=== PATIENT | female | born 1985 | race Caucasian/White ===

== ENCOUNTER 2019-08-17 16:16 | Emergency (ER) | payer SELFPAY ==
[2019-08-17 16:20] VITALS: BP 146/95; PULSE 136; RESP 20; TEMP 38.2; O2SAT 99
--- NOTE | 2019-08-17 16:45 | PC.NURSE ---
Made aware of positive flu result and told to continue to wear mask
--- NOTE | 2019-08-17 17:30 | ED.GENADULT ---
HPI - General Adult General Chief complaint: Upper Respiratory Infection Stated complaint: diff breathing/fever Time Seen by Provider: 08/17/19 16:28 Source: patient Mode of arrival: ambulatory Limitations: no limitations History of Present Illness HPI narrative: Patient is a 33-year-old female who presents to emergency department for evaluation of fever chills body aches fatigue cough congestion sore throat rhinorrhea began acutely yesterday has not taken anything for her symptoms denies vomiting or diarrhea. Patient has moderate aching pain of the chest with coughing Related Data Home Medications Medication Instructions Recorded Confirmed sertraline 50 mg tablet 50 mg PO DAILY 05/28/19 Allergies Allergy/AdvReac Type Severity Reaction Status Date / Time diazepam Allergy Unknown Hives and Verified 08/17/19 16:37 Shortness of breath Review of Systems Review of Systems: All systems reviewed & are unremarkable except as noted in HPI and below PMFSH Past Medical History Medical History Abnormal Pap smear of cervix Major depressive disorder, recurrent, moderate Mild intermittent asthma Family History Family History (Updated 06/26/17 @ 21:18 by DOCTOR UNKNOWN) Mother Patient's mother is in good health Father Family history of cardiovascular disease, Onset Age: 63 Family history of schizophrenia Social History Social History Smoking status: Never smoker Alcohol intake: never Substance use: never Substance use type: does not use Gender identity (if verbalized by the patient): Female Exam Narrative: Exam Narrative: GENERAL: Ill-appearing, well-nourished, and in no acute distress. HEAD: Normocephalic, atraumatic. EYES: PERRLA and EOMI. ENT: Nares clear, no rhinorrhea or epistaxis. Mucous membranes moist. Oropharynx without tonsillar hypertrophy exudate or other lesions. NECK: Supple. No adenopathy or masses. No carotid bruits or JVD CHEST: Clear to auscultation. No respiratory distress. No wheezes rales or rhonchi HEART: Regular rate and rhythm. No murmur heard. Normal peripheral pulses. ABDOMEN: Soft, nontender, nondistended, normal active bowel sounds. EXTREMITIES: Normal range of motion. No edema. SKIN: Warm, dry, no rash. NEURO: No focal deficits. Alert and oriented x3. Cranial nerves II through XII grossly intact. Normal speech and gait PSYCH: Normal mood and affect. Course Course Emergency Course: Patient in the room in no distress aware of case findings treatment plan and diagnosis agreeing to follow-up as directed or to return if symptoms worsen or concerns Vital Signs Vital signs: Vital Signs Temperature 100.7 F H 08/17/19 16:20 Pulse Rate 136 H 08/17/19 16:20 Respiratory Rate 20 08/17/19 16:20 Blood Pressure 146/95 H 08/17/19 16:20 Pulse Oximetry 99 08/17/19 16:20 Temperature 100.7 F H 08/17/19 16:20 Pulse Rate 136 H 08/17/19 16:20 Respiratory Rate 20 08/17/19 16:20 Blood Pressure 146/95 H 08/17/19 16:20 Pulse Oximetry 99 08/17/19 16:20 Medical Decision Making MDM Narrative Medical decision making narrative: Patient in the room with influenza given updraft treatment nontoxic-appearing no distress felt appropriate for outpatient reevaluation Vital Signs Vital Signs: Vital Signs Temperature 100.7 F H 08/17/19 16:20 Pulse Rate 136 H 08/17/19 16:20 Respiratory Rate 20 08/17/19 16:20 Blood Pressure 146/95 H 08/17/19 16:20 Pulse Oximetry 99 08/17/19 16:20 Temperature 100.7 F H 08/17/19 16:20 Pulse Rate 136 H 08/17/19 16:20 Respiratory Rate 20 08/17/19 16:20 Blood Pressure 146/95 H 08/17/19 16:20 Pulse Oximetry 99 08/17/19 16:20 Lab Data Labs: Influenza A Screen Positive Reference Range: Negative Influenza B Screen Negative Reference Range:
[2019-08-17] MEDS: ACETAMINOPHEN 500 MG TABLET 1000 MG PO (17:47)
[2019-08-17] MEDS: IBUPROFEN 600 MG TABLET PO (17:48)
[2019-08-17] MEDS: IPRATROPIUM BR 0.02% INH SOLN 0.5 MG/2.5 ML VIAL INHALATION (17:56)
[2019-08-17] MEDS: ALBUTEROL SULFATE NEB 2.5 MG/0.5 ML INH 5 MG INHALATION (17:56)
[2019-08-17 17:58] VITALS: PULSE 128; RESP 18
--- NOTE | 2019-08-17 18:02 | PC.NURSE ---
UDT in progress.
[2019-08-17 18:04] VITALS: PULSE 126; RESP 22
[2019-08-17 18:35] VITALS: TEMP 37.4
== END 2019-08-17 18:35 | disposition home or self-care (01) ==
PROVIDERS: Emergency Provider Emergency Medicine; PCP Family Medicine
DX: J11.1 Influenza due to unidentified influenza virus with other respiratory manifestations (principal)
CPT/HCPCS: 87804; 94640; 99283; A9270

== ENCOUNTER 2019-08-19 18:22 | Emergency (ER) | payer SELFPAY | END 2019-08-19 18:23 | disposition left against medical advice (07) | LOC: ANHED 19:52 | PROVIDERS: PCP Family Medicine | DX: Z53.21 Procedure and treatment not carried out due to patient leaving prior to being seen by health care provider (principal) | CPT/HCPCS: 99199 ==

== ENCOUNTER 2020-06-17 10:27 | Emergency (ER) | payer SELFPAY ==
--- NOTE | ~2020-06-17 | XR_ITS ---
EXAMINATION: XR chest 2V EXAM DATE: 06/17/2020 10:51 INDICATION: Shortness of breath, sore throat. TECHNIQUE: Frontal and lateral projections of the chest obtained and reviewed. Comparison is made to prior examination from 05/14/2017. FINDINGS: The lungs are clear. There are no pleural effusions. The cardiomediastinal silhouette is within normal limits. There is no pneumothorax suspected. The bones and soft tissues are unremarkab le. IMPRESSION: No acute cardiopulmonary findings. Reviewed, dictated and finalized at location [facility]. MEASURING MACHINE OPERATOR
[2020-06-17 10:36] VITALS: BP 138/84; PULSE 94; RESP 16; TEMP 36.4; O2SAT 100
--- NOTE | 2020-06-17 11:08 | ED.URI ---
HPI - URI/Sore Throat General Chief Complaint: Upper Respiratory Infection Stated Complaint: sore throat Time Seen by Provider: 06/17/20 11:00 Source: patient and RN notes reviewed Mode of arrival: ambulatory Limitations: no limitations History of Present Illness HPI Narrative: Patient presents today complaining of a 2-day history of productive cough, wheezing, shortness of breath, fatigue, sore throat. She has been taking Robitussin and cough drops without relief. Currently rates her sore throat 03/02. History of bronchitis that she gets once a year. Patient had a Covid swab done this morning at [facility], but does not yet have the results. Patient is also requesting a refill of her albuterol inhaler. MD elicited complaint: cough and sore throat Related Data Home Medications Medication Instructions Recorded Confirmed sertraline 50 mg tablet 50 mg PO DAILY 05/28/19 Allergies Allergy/AdvReac Type Severity Reaction Status Date / Time diazepam Allergy Unknown Hives and Verified 06/17/20 10:31 Shortness of breath Review of Systems Review of Systems: Narrative: CONSTITUTIONAL: Denies body aches, fever, chills, or sweats.+ Fatigue EYES: Denies visual changes, redness, or discharge. ENT: Denies rhinorrhea, or otalgia.+ Congestion, sore throat CARDIOVASCULAR: Denies chest pain, palpitations, or edema. RESPIRATORY: + Cough, wheezing, shortness of breath GASTROINTESTINAL: Denies abdominal pain, nausea, vomiting, or diarrhea. GENITOURINARY: Denies dysuria or hematuria. SKIN: Denies rash, itching, or wounds. MUSCULOSKELETAL: Denies back pain, joint pain, or myalgia. NEUROLOGIC: Denies headache, numbness, tingling, or weakness. PSYCH: Denies depression or anxiety. [facility] Past Medical History Medical History (Updated 06/17/20 @ 11:13 by Rosita Miller, JENNIFER, BC) Abnormal Pap smear of cervix Major depressive disorder, recurrent, moderate Mild intermittent asthma Family History Family History Mother Patient's mother is in good health Father Family history of cardiovascular disease, Onset Age: 63 Family history of schizophrenia Social History Social History Smoking status: Never smoker Alcohol intake: never Substance use: never Substance use type: does not use Gender identity (if verbalized by the patient): Female Comments At time of signature, I have reviewed and agree with nursing past medical, surgical, social and family history unless otherwise noted. Please see nursing chart for further information. There is no relevant family history pertinent to the presenting complaint Exam Narrative: Exam Narrative: GENERAL: Mildly ill-appearing, well-nourished, and in no acute distress. HEAD: Normocephalic, atraumatic. EYES: EOMI. No redness or drainage. Conjunctivae normal. ENT: Mucous membranes pink and moist. Nares congested. No rhinorrhea. TMs normal bilaterally. Throat normal. Uvula midline. NECK: Normal AROM. Supple. No lymphadenopathy. CHEST: No respiratory distress. Clear to auscultation. HEART: Regular rate and rhythm. No murmur appreciated. Normal peripheral pulses. EXTREMITIES: Normal range of motion. No edema. SKIN: Warm, dry, no rash. Capillary refill normal. Normal skin turgor. NEURO: No focal deficits. Alert and oriented x3. Gait steady. PSYCH: Normal affect. No signs of depression or anxiety. Course Course Emergency Course: Due to recent exposure and symptoms, patient may have a possible COVID-19 infection. Signs and symptoms discussed with patient. Patient educated to self-isolate in a room in his/her home away from others they live with. Use mask if available. Patient was advised not to leave house for any reason ? Self-treatment discussed including Tylenol for fever, pain, or myalgia, and cough cold medications for symptoms. Patient to check [place]
== END 2020-06-17 11:16 | disposition home or self-care (01) ==
PROVIDERS: Emergency Provider Nurse Practitioner
DX: J40 Bronchitis, not specified as acute or chronic (principal); F33.9 Major depressive disorder, recurrent, unspecified
CPT/HCPCS: 71046; 87081; 87880; 99213; G0463

== ENCOUNTER 2020-10-07 09:22 | Emergency (ER) | payer SELFPAY ==
[2020-10-07 09:26] VITALS: BP 137/95; PULSE 104; RESP 20; TEMP 36.5; O2SAT 97
[2020-10-07 10:10] LABS: Basophils Percent Auto 0.2 % (0.2-1.2); Eosinophils Absolute Auto 0.1 K/mm3 (0-0.3); Eosinophils Percent Auto 0.6 % (0-4.4); Hematocrit 48.2 % (37.0-47.0); Hemoglobin 15.5 g/dL (12.0-15.0); Immature Granulocyte Absolute 0.07 K/mm3 (0.00-0.031); Immature Granulocyte Percent A 0.4 % (0-0.5); Lymphocytes Absolute Auto 0.68 K/mm3 (0.9-3.2); Lymphocytes Percent Auto 4.3 % (18.3-44.2); Mean Corpuscular HGB Conc 32.2 g/dl (32-36); Mean Corpuscular Hemoglobin 27.9 pg (26-34); Mean Corpuscular Volume 86.8 fl (80-100); Mean Platelet Volume 9.5 fl (7.4-10.4); Monocytes Absolute Auto 0.6 K/mm3 (0.1-0.6); Monocytes Percent Auto 3.8 % (2.6-8.5); Neutrophils Absolute Auto 14.2 K/mm3 (1.3-6.7); Neutrophils Percent Auto 90.7 % (45.5-73.1); Platelet Count Result 409 k/mm3 (150-375); Red Blood Count 5.55 M/mm3 (4.2-5.4); Red Cell Distribution Width 13.5 % (11.5-14.5); White Blood Count 15.7 K/mm3 (4.5-10.0)
[2020-10-07 10:16] LABS: Add Urine Microscopic? YES; Appearance Urine Cloudy (Clear); Bacteria Urine Trace /hpf; Bilirubin Urine Negative (Negative); Blood Urine Negative (Negative); Color Urine Yellow (Yellow); Glucose Urine UA Negative (Negative); Ketones Urine Negative (Negative); Leukocyte Esterase Ur 3+ LEU/UL (Negative); Mucus Urine Few /lpf; Nitrate Urine Negative (Negative); Protein Urine 1+ mg/dL (Negative); Specific Grav Ur 1.029 (1.001-1.035); Squamous Epithelial Cell Urine Many /hpf (Few); Urobilinogen Urine Negative mg/dL (<2.0)
[2020-10-07 10:23] LABS: Alanine Aminotransferase 12 U/L (4-35); Albumin Level 5.1 g/dL (3.5-5.1); Alkaline Phosphatase 85 U/L (38-126); Anion Gap 12 mmol/L (8-16); Aspartate Amino Transferase 22 U/L (14-36); Bilirubin,Total 0.5 mg/dL (0.2-1.3); Blood Urea Nitrogen 14 mg/dL (7-17); Calcium 9.5 mg/dL (8.4-10.2); Carbon Dioxide 23 mmol/L (22-30); Chloride 105 mmol/L (98-107); Estimated CRCL calculation 93 ml/min; Estimated Glomerular Filt Rate > 60; Glucose 146 mg/dL (65-105); Lipase 102 U/L (23-300); Potassium 4.2 mmol/L (3.4-5.0); Sodium 140 mmol/L (137-145)
[2020-10-07] MEDS: ONDANSETRON INJ 4 MG/2 ML VIAL IV PUSH (10:44)
[2020-10-07] MEDS: FAMOTIDINE 20 MG/2 ML VIAL IV PUSH (10:44)
[2020-10-07] MEDS: SODIUM CHLORIDE 0.9% IV 1,000 ML 999 ML IV CONT (10:45)
[2020-10-07] MEDS: HYOSCYAMINE SULFATE 0.125 MG TABLET PO (10:48)
--- NOTE | 2020-10-07 12:16 | ED.GENADULT ---
HPI - General Adult General Chief complaint: Nausea/Vomiting/Diarrhea Stated complaint: n/v/d since 0300 with fever Time Seen by Provider: 10/07/20 10:29 Source: patient and family Mode of arrival: ambulatory Limitations: no limitations History of Present Illness HPI narrative: Patient is a 34-year-old female who presented to emergency department for evaluation of vomiting and diarrhea that began yesterday and persisted throughout the night patient noted multiple episodes of both with retching notes some discomfort in the upper abdomen with the vomiting denies any rectal bleeding melena or hematemesis. Patient has not taken anything for her symptoms. Patient notes sick contacts at work with similar symptoms. Related Data Allergies Allergy/AdvReac Type Severity Reaction Status Date / Time diazepam Allergy Unknown Hives and Verified 10/07/20 09:27 Shortness of breath Review of Systems Review of Systems: All systems reviewed & are unremarkable except as noted in HPI and below PMFSH Past Medical History Medical History (Updated 10/07/20 @ 12:19 by Ildefonso Soliz PA-C) Abnormal Pap smear of cervix Major depressive disorder, recurrent, moderate Mild intermittent asthma Family History Family History Mother Patient's mother is in good health Father Family history of cardiovascular disease, Onset Age: 63 Family history of schizophrenia Social History Social History Smoking status: Never smoker Alcohol intake: never Substance use: never Substance use type: does not use Gender identity (if verbalized by the patient): Female Exam Narrative: Exam Narrative: GENERAL: Well-appearing, well-nourished, and in no acute distress. HEAD: Normocephalic, atraumatic. EYES: PERRLA and EOMI. ENT: Nares clear, no rhinorrhea or epistaxis. Mucous membranes moist. Oropharynx without tonsillar hypertrophy exudate or other lesions. NECK: Supple. No adenopathy or masses. CHEST: Clear to auscultation. No respiratory distress. No wheezes rales or rhonchi HEART: Regular rate and rhythm. No murmur heard. Normal peripheral pulses. ABDOMEN: Soft, mild tenderness of the upper abdomen no rebound or guarding, nondistended EXTREMITIES: Normal range of motion. No edema. SKIN: Warm, dry, no rash. NEURO: No focal deficits. Alert and oriented x3. Cranial nerves II through XII grossly intact PSYCH: Normal mood and affect. Course Course Emergency Course: Patient in the room in no distress aware of case findings treatment plan and diagnosis agreeing to follow-up as instructed Vital Signs Vital signs: Vital Signs Temperature 97.7 F 10/07/20 09:26 Pulse Rate 104 H 10/07/20 09:26 Respiratory Rate 20 10/07/20 09:26 Blood Pressure 137/95 H 10/07/20 09:26 Pulse Oximetry 97 10/07/20 09:26 Temperature 97.7 F 10/07/20 09:26 Pulse Rate 104 H 10/07/20 09:26 Respiratory Rate 20 10/07/20 09:26 Blood Pressure 137/95 H 10/07/20 09:26 Pulse Oximetry 97 10/07/20 09:26 Medical Decision Making MDM Narrative Medical decision making narrative: Patient was evaluated for vomiting and diarrhea likely enteritis patient was hydrated given medications feels much better tolerating p.o. intake nontender abdominal exam will be discharged home with medications and provided with reasons to return vital signs and ABCs intact and stable patient's leukocytosis likely related to the stress reaction and infection Vital Signs Vital Signs: Vital Signs Temperature 97.7 F 10/07/20 09:26 Pulse Rate 104 H 10/07/20 09:26 Respiratory Rate 20 10/07/20 09:26 Blood Pressure 137/95 H 10/07/20 09:26 Pulse Oximetry 97 10/07/20 09:26 Temperature 97.7 F 10/07/20 09:26 Pulse Rate 104 H 10/07/20 09:26 Respiratory Rate 20 10/07/20 09:26 Blood Pressure 137/95 H 10/07/20 09:26 Pulse Oximetry 97
[2020-10-07] MEDS: PROCHLORPERAZINE EDISYLATE 10 MG/2 ML VIAL IV PUSH (12:47)
[2020-10-07 12:54] VITALS: BP 130/84; PULSE 84; RESP 18; O2SAT 100
== END 2020-10-07 12:58 | disposition home or self-care (01) ==
PROVIDERS: Emergency Provider Emergency Medicine; PCP Family Medicine
DX: R10.10 Upper abdominal pain, unspecified (principal); J45.20 Mild intermittent asthma, uncomplicated
CPT/HCPCS: 36415; 80053; 81001; 81025; 83690; 85025; 96361; 96365; 96375; 99284; A9270; J0131; J0780; J2405; J7030

== ENCOUNTER 2021-08-05 11:36 | Emergency (ER) | payer SELFPAY ==
--- NOTE | 2021-08-05 11:38 | ED.URI ---
HPI - URI/Sore Throat General Chief Complaint: Upper Respiratory Infection Stated Complaint: currie/sore throat/sob Time Seen by Provider: 08/05/21 12:07 Source: patient and RN notes reviewed Mode of arrival: ambulatory Limitations: no limitations History of Present Illness HPI Narrative: 35-year-old female presents concern for 6-day history of cough, feeling of shortness of breath, hoarse voice, fatigue, sneezing, fever. Reports symptoms started on Friday, she was seen in the emergency room and tested negative for Covid and strep on . She reports she has been taking DayQuil and NyQuil without relief. She denies nausea, vomiting, diarrhea. MD elicited complaint: cough Related Data Allergies Allergy/AdvReac Type Severity Reaction Status Date / Time diazepam Allergy Unknown Hives and Verified 10/07/20 09:27 Shortness of breath Review of Systems Review of Systems: CONSTITUTIONAL: Reports malaise, chills, fatigue fever. EYES: Denies visual changes, redness, or discharge. ENT: Reports rhinorrhea, congestion, hoarse voice. Denies sinus pain, otalgia CARDIOVASCULAR: Denies chest pain, palpitations, or edema. RESPIRATORY: Reports cough, dyspnea. GASTROINTESTINAL: Denies abdominal pain, nausea, vomiting, diarrhea SKIN: Denies rash or itching. MUSCULOSKELETAL: Reports myalgia. NEUROLOGIC: Denies headache. All systems reviewed & are unremarkable except as noted in HPI and below PMFSH Past Medical History Medical History (Updated 08/05/21 @ 12:23 by Martha Lemus, RACHEL) Abnormal Pap smear of cervix Major depressive disorder, recurrent, moderate Mild intermittent asthma Family History Family History Mother Patient's mother is in good health Father Family history of cardiovascular disease, Onset Age: 63 Family history of schizophrenia Social History Social History Smoking status: Never smoker Alcohol intake: never Substance use: never Substance use type: does not use Gender identity (if verbalized by the patient): Female Comments At time of signature, agree with nursing past medical, surgical, social and family history. There is no relevant family history pertinent to the presenting complaint Exam Narrative: GENERAL: Well-appearing, well-nourished, and in no acute distress. HEAD: Normocephalic EYES: PERRLA, conjunctivae clear ENT: Nares clear, turbinates edematous and erythematous, clear discharge. Mucous membranes moist. TM pearly sam with dull light reflex bilaterally; no tragal tenderness. Oropharynx not erythematous without lesions. Tonsils not enlarged and without exudate, no drooling,no trismus, uvula midline. Mildly hoarse voice NECK: Supple. No lymphadenopathy CHEST: Scattered expiratory wheeze, aeration fair otherwise clear to auscultation, breath sounds equal. No rhonchi, rales, or stridor. No respiratory distress, speaks in full sentences. HEART: Regular rate and rhythm. No murmur heard. SKIN: Warm, dry, no rash. NEURO: Alert and oriented x3. PSYCH: Normal mood and affect Course Course Emergency Course: Patient is aware of diagnosis, understands and agrees to treatment plan. Anticipatory guidance given. Patient agrees to follow-up as directed and is aware of reasons to seek care at the emergency department. Portions of this record may have been created with voice recognition software Level of Care: Express Care Visit Vital Signs Vital signs: Reviewed. MDM - URI/Sore Throat MDM Narrative Medical decision making narrative: Differential diagnosis considered: Acevedo virus, strep pharyngitis, allergic rhinitis, upper respiratory tract infection, sinusitis, rhinosinusitis, nasopharyngitis. viral pharyngitis, otitis media, otitis externa, pneumonia, bronchitis, viral cough syndrome, viral syndrome, and influenza. Exam findings show no acute concerns or changes; patient is non-tox
[2021-08-05 11:45] VITALS: BP 155/91; PULSE 109; RESP 18; TEMP 36.8; O2SAT 99
== END 2021-08-05 12:26 | disposition home or self-care (01) ==
PROVIDERS: Emergency Provider Nurse Practitioner
DX: J40 Bronchitis, not specified as acute or chronic (principal); Z20.822 Contact with and (suspected) exposure to COVID-19
CPT/HCPCS: 87426; 99213; C9803; G0463

== ENCOUNTER 2021-10-05 16:28 | Outpatient (CLI) | payer OTHER, SELFPAY ==
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
== END 2021-10-05 16:29 | disposition home or self-care (01) ==
PROVIDERS: Visit Provider Nurse Practitioner Gerontology
DX: S06.0X9A Concussion with loss of consciousness of unspecified duration, initial encounter (principal); X58.XXXA Exposure to other specified factors, initial encounter; V89.2XXA Person injured in unspecified motor-vehicle accident, traffic, initial encounter; K11.6 Mucocele of salivary gland
CPT/HCPCS: 70450

== ENCOUNTER 2021-10-19 13:11 | Outpatient (RCR) | payer OTHER, SELFPAY ==
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
--- NOTE | 2021-10-24 08:39 | PCPTNOTE ---
Patient did not show up for scheduled appointment this date. Called and left voicemail.
--- NOTE | 2021-10-26 14:37 | PCPTNOTE ---
Patient did not show up for scheduled appointment this date. Called and left voicemail. Informed Pt this is their second N/S, and per our no-show policy if she no-shows again we will be discharging her and she will need a new order to continue with therapy. Informed of upcoming appointment on 10/31/21 @ 14:30, if she is unable to make to please call and cancel. This is Pt's second N/S.
--- NOTE | 2021-10-31 14:57 | PCPTNOTE ---
Patient did not show up for scheduled appointment this date. Called and left voice mail about missed appointment. Informed Pt she will be discharged due to N/S policy. This is Pt's third N/S. Informed Pt she will need a new order if she would wish to continue therapy and if she had any questions or concerns to call . Physical Therapist has been informed.
--- NOTE | 2021-11-07 08:43 | PCPTNOTE ---
PHYSICAL THERAPY DISCHARGE 11-07-21 Attending Provider: Karolyn Davenport NP Patient:Mila Hurley Date of :1985 Ms. Hurley has not returned for any further treatments since the PT evaluation on 10/19/2021, therefore she will be discharged at this time. She did not show for 3 scheduled appointments. The goals were not assessed. Thank you for referring this patient to [facility]. Please review, sign, date and return this discharge summary GENI. I have been updated about the patient's current status and I agree with discharge from the above service at this time. Referring Physician Date
== END 2021-11-07 10:37 | disposition home or self-care (01) ==
LOC: ANHPT 13:11
PROVIDERS: PCP Family Medicine; Visit Provider Nurse Practitioner Gerontology
DX: M54.2 Cervicalgia (principal); V89.2XXA Person injured in unspecified motor-vehicle accident, traffic, initial encounter
CPT/HCPCS: 97110; 97161

== ENCOUNTER 2022-02-14 08:00 | Emergency (ER) | payer SELFPAY ==
--- NOTE | 2022-02-14 08:02 | ED.URI ---
HPI - URI/Sore Throat General Chief Complaint: Upper Respiratory Infection Stated Complaint: headache, cough, nausea, bodyaches Time Seen by Provider: 02/14/22 08:10 Source: patient, RN notes reviewed and old records reviewed Mode of arrival: ambulatory Limitations: no limitations History of Present Illness HPI Narrative: 36-year-old female presents to the [facility] with complaints of cough, body aches, headache, nasal congestion, ear pressure since yesterday. Patient states that she has taken Robitussin and NyQuil with minimal relief. Patient is COVID vaccinated Patient last COVID was 2 years ago. Patient states that she took a home test which was negative. Has declined PCR testing at this time. Requesting a work note MD elicited complaint: cough and nasal congestion Onset (ago): day(s) (1) Related Data Allergies Allergy/AdvReac Type Severity Reaction Status Date / Time diazepam Allergy Unknown Hives and Verified 02/14/22 08:32 Shortness of breath Review of Systems Review of Systems: All systems reviewed & are unremarkable except as noted in HPI and below Constitutional: Constitutional: Reports no additional constitutional complaints, Denies chills and Denies fever(s) Eyes: Eyes: Reports no additional eye complaints ENT: Reports as per HPI Cardiovascular: Cardiovascular: Reports no additional cardiovascular complaints Respiratory: Respiratory: Reports as per HPI, Reports chest congestion and Reports cough Gastrointestinal: Gastrointestinal: Reports no additional gastrointestinal complaints Musculoskeletal: Musculoskeletal: Reports no additional musculoskeletal complaints Integumentary/Breasts: Skin/Breast: Reports system reviewed and no additional complaints, except as docu Neurologic: Reports as per HPI and Reports headache(s) Psychiatric: Psychiatric: Reports no additional psychiatric complaints Allergic/Immunologic: Allergic/Immunologic: Reports no additional allergic/immunologic complaints [facility] Past Medical History Medical History (Updated 02/14/22 @ 08:39 by Martha Garcia APRN) Abnormal Pap smear of cervix Major depressive disorder, recurrent, moderate Mild intermittent asthma Family History Family History Mother Patient's mother is in good health Father Family history of cardiovascular disease, Onset Age: 63 Family history of schizophrenia Social History Social History Social History: Smoking status: Never smoker Second hand tobacco smoke exposure: No Alcohol intake: never Substance use: never Substance use type: does not use Gender identity (if verbalized by the patient): Female Sexual Orientation (if Verbalized by the Patient): Straight or Heterosexual Comments At the time of my signature, I reviewed and agree with the nursing past medical, surgical, social, and family history. There is no relevant family history pertinent to the patient complaint. Exam Const: General: healthy appearing, no acute distress and alert Nutritional Appearance: well nourished Orientation/consciousness: patient oriented x3 Limitations: no limitations HENMT: Head: normal to inspection Ears: external ears normal, EAC's normal and TM abnormal bulging bilateral and with fluid behind the TM bilateral; not erythematous, with no loss of landmarks and not perforated General nose exam: Normal external nose present and Normal nares present Face and sinus: normal facial exam Mouth: Yes Normal oral and palatal mucosa present, Yes lip normal and Yes moist mucous membranes Throat: posterior oropharynx normal, tonsils normal, uvula midline and postnasal drainage Eyes: General: appearance normal, both eyes and all related structures Conjunctivae: conjunctivae normal Pupils: Equal, round and reactive pupils present Neck: Neck: normal visual inspection, no lymphadenopathy a
[2022-02-14 08:08] VITALS: BP 159/93; PULSE 93; RESP 16; TEMP 37.1; O2SAT 100
== END 2022-02-14 08:31 | disposition home or self-care (01) ==
PROVIDERS: Emergency Provider Nurse Practitioner; PCP Family Medicine
DX: J40 Bronchitis, not specified as acute or chronic (principal); J06.9 Acute upper respiratory infection, unspecified; J45.909 Unspecified asthma, uncomplicated; Z86.16 Personal history of COVID-19
CPT/HCPCS: 99213; G0463

== ENCOUNTER 2022-04-10 02:10 | Emergency (ER) | payer SELFPAY ==
--- NOTE | ~2022-04-10 | XR_ITS ---
EXAMINATION: XR chest 1V portable DATE: 04/10/2022 02:57 INDICATION: Cough TECHNIQUE: frontal view of the chest was obtained. COMPARISON: Chest radiograph dated 06/17/2020 FINDINGS: The lungs remain clear with no focal airspace opacities, pulmonary edema, pleural effusion or pneumot horax. The cardiomediastinal silhouette is normal. Visualized bones and soft tissues are unremarkable . IMPRESSION: 1. Normal chest radiograph. Reviewed, dictated and finalized at location A. IMPRESSION: 1. Normal chest radiograph.
[2022-04-10 02:19] VITALS: BP 137/80; PULSE 74; RESP 21; TEMP 36.8; O2SAT 100
[2022-04-10 03:04] LABS: Basophils Percent Auto 0.3 % (0.2-1.2); Eosinophils Absolute Auto 0.1 K/mm3 (0-0.3); Eosinophils Percent Auto 1.2 % (0-4.4); Hematocrit 43.8 % (37.0-47.0); Immature Granulocyte Absolute 0.02 K/mm3 (0.00-0.031); Immature Granulocyte Percent A 0.2 % (0-0.5); Lymphocytes Absolute Auto 1.39 K/mm3 (0.9-3.2); Mean Corpuscular Hemoglobin 27.9 pg (26-34); Mean Corpuscular Volume 87.4 fl (80-100); Mean Platelet Volume 9.1 fl (7.4-10.4); Monocytes Absolute Auto 0.7 K/mm3 (0.1-0.6); Monocytes Percent Auto 7.6 % (2.6-8.5); Neutrophils Absolute Auto 6.5 K/mm3 (1.3-6.7); Neutrophils Percent Auto 74.7 % (45.5-73.1); Platelet Count Result 372 k/mm3 (150-375); Red Blood Count 5.01 M/mm3 (4.2-5.4); Red Cell Distribution Width 12.9 % (11.5-14.5); White Blood Count 8.7 K/mm3 (4.5-10.0)
[2022-04-10 03:15] LABS: Alanine Aminotransferase 16 U/L (6-35); Albumin Level 4.6 g/dL (3.5-5.1); Alkaline Phosphatase 73 U/L (38-126); Anion Gap 10 mmol/L (8-16); Aspartate Amino Transferase 28 U/L (14-36); Bilirubin,Total 0.4 mg/dL (0.2-1.3); Blood Urea Nitrogen 10 mg/dL (7-17); Calcium 8.6 mg/dL (8.4-10.2); Carbon Dioxide 25 mmol/L (22-30); Chloride 103 mmol/L (98-107); Estimated CRCL calculation 80 ml/min; Estimated Glomerular Filt Rate > 60; Glucose 128 mg/dL (65-110); Lipase 111 U/L (23-300); Potassium 3.8 mmol/L (3.4-5.0); Sodium 138 mmol/L (137-145)
[2022-04-10] MEDS: SODIUM CHLORIDE 0.9% IV 1,000 ML 999 ML IV CONT (03:19)
--- NOTE | 2022-04-10 03:45 | ED.NAVMDI ---
HPI - Nausea/Vomiting/Diarrhea General Chief complaint: Nausea/Vomiting/Diarrhea Stated complaint: COVID+ Sun 04/07, N/D, SOB, weakness Time Seen by Provider: 04/10/22 02:16 History of Present Illness HPI Narrative: Patient is a 36-year-old female who presents ER with multiple complaints. She was diagnosed with COVID-19 on 04/07/2022. Since then she has been having nausea and vomiting as well as diarrhea. She reports this is causing her to be weak and she feels dehydrated. She has occasional shortness of breath with walking. Mild cough nonproductive. No alleviating factors. Currently taking Paxlovid. Related Data Allergies Allergy/AdvReac Type Severity Reaction Status Date / Time diazepam Allergy Unknown Hives and Verified 04/10/22 02:23 Shortness of breath Review of Systems Review of Systems: All systems reviewed & are unremarkable except as noted in HPI and below Constitutional: Constitutional: Reports chills, Reports fatigue, Reports fever(s) and Reports weakness ENT: Denies nasal congestion and Denies sore throat Cardiovascular: Cardiovascular: Denies chest pain, Denies rapid heart rate and Denies radiating jaw, neck or arm pain Respiratory: Respiratory: Denies chest congestion, Reports cough, Reports dyspnea and Denies wheezing Gastrointestinal: Gastrointestinal: Denies abdominal pain, Reports diarrhea, Reports nausea and Reports vomiting Genitourinary: Genitourinary: Denies nocturia and Denies dysuria [facility] Past Medical History Medical History (Updated 04/10/22 @ 04:02 by Tyree Alcala MD) Abnormal Pap smear of cervix Major depressive disorder, recurrent, moderate Mild intermittent asthma Surgical History Surgical History (Updated 04/10/22 @ 04:02 by Tyree Alcala MD) No history of previous surgery Family History Family History Mother Patient's mother is in good health Father Family history of cardiovascular disease, Onset Age: 63 Family history of schizophrenia Social History Social History Social History: Smoking status: Never smoker Second hand tobacco smoke exposure: No Alcohol intake: never Substance use: never Substance use type: does not use Gender identity (if verbalized by the patient): Female Sexual Orientation (if Verbalized by the Patient): Straight or Heterosexual Exam Narrative: GENERAL: Well-appearing, well-nourished, and in no acute distress. HEAD: Normocephalic, atraumatic. ENT: Mucous membranes moist. CHEST: Clear to auscultation. No respiratory distress. HEART: Regular rate and rhythm. Normal peripheral pulses. ABDOMEN: Soft, nontender, nondistended. EXTREMITIES: Normal range of motion. No edema. SKIN: Warm, dry, no rash. NEURO: Alert and oriented x3. PSYCH: Normal mood and affect. Course Course Emergency Course: Patient resting comfortably. Informed of results. Discharge home. Vital Signs Vital signs: Vital Signs Temperature 98.3 F 04/10/22 02:19 Pulse Rate 74 04/10/22 02:19 Respiratory Rate 21 H 04/10/22 02:19 Blood Pressure 137/80 04/10/22 02:19 Pulse Oximetry 100 04/10/22 02:19 Oxygen Delivery Room Air 04/10/22 02:19 Temperature 98.3 F 04/10/22 02:19 Pulse Rate 74 04/10/22 02:19 Respiratory Rate 21 H 04/10/22 02:19 Blood Pressure 137/80 04/10/22 02:19 Pulse Oximetry 100 04/10/22 02:19 Oxygen Delivery Room Air 04/10/22 02:23 MDM - Nausea/Vomiting/Diarrhea Lab Data Result diagrams: 04/10/22 02:58 04/10/22 02:58 Labs: Lab Results 04/10/22 04/10/22 Range/Units 02:58 02:58 WBC 8.7 (4.5-10.0) K/mm3 RBC 5.01 (4.2-5.4) M/mm3 Hgb 14.0 (12.0-15.0) g/dL Hct 43.8 (37.0-47.0) % MCV 87.4 (80-100) fl MCH 27.9 (26-34) pg MCHC 32.0 (32-36) g/dl RDW 12.9 (11.5-14.5) % Plt Count 372 (15
[2022-04-10 04:03] VITALS: BP 152/86; PULSE 86; RESP 21; O2SAT 100
[2022-04-10 04:17] VITALS: BP 152/86; PULSE 88; RESP 18; O2SAT 98
== END 2022-04-10 04:20 | disposition home or self-care (01) ==
PROVIDERS: Emergency Provider Emergency Medicine; PCP Family Medicine
DX: U07.1 COVID-19 (principal); F32.9 Major depressive disorder, single episode, unspecified; J45.909 Unspecified asthma, uncomplicated
CPT/HCPCS: 36415; 71045; 80053; 83690; 85025; 96360; 99283; J7030

== ENCOUNTER 2022-05-08 07:46 | Emergency (ER) | payer SELFPAY ==
--- NOTE | ~2022-05-08 | XR_ITS ---
EXAMINATION: XR chest 2V DATE: 05/08/2022 08:22 INDICATION: COVID positive presenting with chest pain and shortness of breath TECHNIQUE: PA and lateral views of the chest were obtained. COMPARISON: Chest radiograph dated 04/10/2022 FINDINGS: The lungs are clear with no focal airspace opacities, pulmonary edema, pleural effusion or pneumothor ax. The cardiomediastinal silhouette is normal. Visualized bones and soft tissues are unremarkable. IMPRESSION: 1. No acute cardiopulmonary disease. Reviewed, dictated and finalized at location B. OF STUDENT SERVICES
--- NOTE | ~2022-05-08 | CT_ITS ---
EXAMINATION: CTA chest PE protocol DATE: 05/08/2022 10:17 INDICATION: Prior COVID infection presenting with chest pain and shortness of breath along with eleva ernst d-dimer. TECHNIQUE: Computed tomography (CT) pulmonary angiogram of the chest was performed with 100 mL Omnipa que-350 intravenous contrast. Additional 3D reconstructions utilizing coronal maximum intensity proje ction (MIP) were performed. Automated exposure control and iterative reconstruction technique were em ployed. The dose-length product was 252.23 mGy-cm. COMPARISON: None FINDINGS: Excellent contrast opacification of the pulmonary arteries. There is moderate streak artifact from de nse contrast in the superior vena cava and right atrium. No significant respiratory motion artifact y ielding diagnostic quality study which demonstrates no pulmonary embolism. Small calcified right lowe r lobe nodule consistent with old granulomatous disease. Lungs are otherwise clear with no pneumonia, pulmonary edema, pleural effusion or pneumothorax. Heart size is normal. No pericardial effusion. Th oracic aorta is normal in caliber with no dissection. No pathologically enlarged thoracic lymphadenop athy. Diffuse hepatic steatosis. Bones are unremarkable. IMPRESSION: 1. No pulmonary embolism or other acute cardiopulmonary disease. 2. Diffuse hepatic steatosis. Reviewed, dictated and finalized at location B. STIC VIOLENCE ADVOCATE
--- NOTE | 2022-05-08 07:53 | ECG_ITS ---
Measurements Intervals Filer Rate: 90 P: 51 MD: 148 QRS: 7 QRSD: 84 T: 24 QT: 353 QTc: 433 Interpretive Statements SINUS RHYTHM BASELINE ARTIFACT- II, III, AVF, V1-V3 NORMAL ECG NO PREVIOUS ECG AVAILABLE FOR COMPARISON Electronically Signed On 05-08-2022 8:20:29 LAND ACQUISITION ANALYST by Gregg Cole D.O.
[2022-05-08 07:54] VITALS: BP 148/98; PULSE 92; RESP 20; TEMP 36.7; O2SAT 99
[2022-05-08 07:58] VITALS: PULSE 91
[2022-05-08 08:08] LABS: Basophils Percent Auto 0.4 % (0.2-1.2); Eosinophils Absolute Auto 0.3 K/mm3 (0-0.3); Eosinophils Percent Auto 4.5 % (0-4.4); Hematocrit 43.7 % (37.0-47.0); Hemoglobin 13.8 g/dL (12.0-15.0); Immature Granulocyte Absolute 0.02 K/mm3 (0.00-0.031); Immature Granulocyte Percent A 0.3 % (0-0.5); Lymphocytes Absolute Auto 2.64 K/mm3 (0.9-3.2); Lymphocytes Percent Auto 34.7 % (18.3-44.2); Mean Corpuscular HGB Conc 31.6 g/dl (32-36); Mean Corpuscular Hemoglobin 27.9 pg (26-34); Mean Corpuscular Volume 88.3 fl (80-100); Monocytes Absolute Auto 0.5 K/mm3 (0.1-0.6); Monocytes Percent Auto 6.4 % (2.6-8.5); Neutrophils Absolute Auto 4.1 K/mm3 (1.3-6.7); Neutrophils Percent Auto 53.7 % (45.5-73.1); Platelet Count Result 423 k/mm3 (150-375); Red Blood Count 4.95 M/mm3 (4.2-5.4); White Blood Count 7.6 K/mm3 (4.5-10.0)
[2022-05-08 08:15] LABS: Alanine Aminotransferase 15 U/L (6-35); Albumin Level 4.7 g/dL (3.5-5.1); Alkaline Phosphatase 66 U/L (38-126); Anion Gap 15 mmol/L (8-16); Aspartate Amino Transferase 19 U/L (14-36); Bilirubin,Total 0.3 mg/dL (0.2-1.3); Blood Urea Nitrogen 12 mg/dL (7-17); Calcium 8.7 mg/dL (8.4-10.2); Carbon Dioxide 26 mmol/L (22-30); Chloride 102 mmol/L (98-107); Estimated CRCL calculation 91 ml/min; Estimated Glomerular Filt Rate > 60; Glucose 125 mg/dL (65-110); Lipase 115 U/L (23-300); Potassium 3.3 mmol/L (3.4-5.0); Sodium 143 mmol/L (137-145)
--- NOTE | 2022-05-08 08:16 | ED.CHESTPAIN ---
HPI - Chest Pain General Chief Complaint: Chest Pain Stated Complaint: CP, shortness of breath, URI Time Seen by Provider: 05/08/22 08:16 Source: patient Mode of arrival: ambulatory Limitations: no limitations History of Present Illness HPI narrative: 36 years old white female, drove herself to the emergency room because of pain at the left upper chest noticed at 4 AM. With shortness of breath. Patient works as a cook, and usually wake up at 4 AM. She reports history of COVID 2 weeks ago, does not feel herself, coughing, sneezing, poor concentration since been diagnosed of COVID. Patient does not take medicine at home, does not smoke or drink or uses drugs. Denied any new physical activities. Related Data Home Medications Medication Instructions Recorded Confirmed No Home Medications 05/08/22 05/08/22 Allergies Allergy/AdvReac Type Severity Reaction Status Date / Time diazepam Allergy Unknown Hives and Verified 05/08/22 07:59 Shortness of breath nirmatrelvir Allergy Anaphylaxis Verified 05/08/22 07:59 [From Paxlovid (EUA)] ritonavir Allergy Anaphylaxis Verified 05/08/22 07:59 [From Paxlovid (EUA)] Review of Systems Review of Systems: All systems reviewed & are unremarkable except as noted in HPI and below PMFSH Past Medical History Medical History Abnormal Pap smear of cervix Major depressive disorder, recurrent, moderate Mild intermittent asthma Surgical History Surgical History No history of previous surgery Family History Family History Mother Patient's mother is in good health Father Family history of cardiovascular disease, Onset Age: 63 Family history of schizophrenia Social History Social History Social History: Smoking status: Never smoker Second hand tobacco smoke exposure: No Alcohol intake: never Substance use: never Substance use type: does not use Gender identity (if verbalized by the patient): Female Sexual Orientation (if Verbalized by the Patient): Straight or Heterosexual Exam Narrative: General appearance: Well-developed, well-nourished Skin: Normal color Head: Normocephalic, nontraumatic Eyes: Clear conjunctiva ENT: Oropharynx normal, ears normal, nose normal Neck: Supple, nontender Chest and respiratory: Airway patent, no respiratory distress, no accessory muscle use, diffuse tenderness left upper chest with palpation, no bruises, no swelling, no rash Heart: Regular rate/rhythm Abdomen: Soft, nontender, no organomegaly, quiet bowel sounds Vascular: Normal peripheral pulses, normal capillary refill. Musculoskeletal: Normal range of motion, nontender back Neurologic: Alert and oriented ?3, MAGNETIC TAPE COMPOSER OPERATOR is normal as tested, no gross motor deficit Course Course Emergency Course: Musculoskeletal pain is my concern. Patient works as a cook. Nonspecific COVID complication is a possibility. Work-up today showed no significant finding to explain her condition, my plan to discharge patient and to take Tylenol, ibuprofen as needed. Vital Signs Vital signs: Vital Signs Temperature 36.7 C 05/08/22 07:54 Pulse Rate 92 05/08/22 07:54 Respiratory Rate 20 05/08/22 07:54 Blood Pressure 148/98 H 05/08/22 07:54 Pulse Oximetry 99 05/08/22 07:54 Oxygen Delivery Room Air 05/08/22 07:54 Temperature 36.7 C 05/08/22 07:54 Pulse Rate 91 05/08/22 07:58 Respiratory Rate 20 05/08/22 07:54 Blood Pressure 148/98 H 05/08/22 07:54 Pulse Oxime
[2022-05-08 08:18] LABS: Prothrombin Time 12.7 Seconds (11.1-14.7)
[2022-05-08 08:27] LABS: Troponin I < 0.012 ng/mL (0.000-0.034)
[2022-05-08] MEDS: ASPIRIN 81 MG CHEWABLE TABLET 324 MG PO (08:29)
[2022-05-08 09:09] LABS: D Dimer 0.53 ug/mL (<0.48)
[2022-05-08 10:46] VITALS: BP 141/86; PULSE 70; RESP 17; O2SAT 99
[2022-05-08 10:58] LABS: Troponin I < 0.012 ng/mL (0.000-0.034)
== END 2022-05-08 11:08 | disposition home or self-care (01) ==
PROVIDERS: Emergency Provider Emergency Medicine; PCP Family Medicine
DX: R07.9 Chest pain, unspecified (principal); U09.9 Post COVID-19 condition, unspecified; K76.0 Fatty (change of) liver, not elsewhere classified; F32.9 Major depressive disorder, single episode, unspecified; J45.909 Unspecified asthma, uncomplicated
CPT/HCPCS: 36415; 71046; 71275; 80053; 81025; 83690; 84484; 85025; 85380; 85610; 85730; 93005; 99284; A9270; Q9967

== ENCOUNTER 2023-01-23 10:54 | Emergency (ER) | payer SELFPAY ==
--- NOTE | 2023-01-23 10:58 | ED.URI ---
HPI - URI/Sore Throat General Chief Complaint: Upper Respiratory Infection Stated Complaint: SORE THROAT/BODY ACHES/FEVER Time Seen by Provider: 01/23/23 11:15 Source: patient, RN notes reviewed and old records reviewed Mode of arrival: ambulatory Limitations: no limitations History of Present Illness HPI Narrative: 37 year old female geri presents to [facility] care with complaints of 2 day history of sore throat, fevers, cough with greenish tinged sputum, fatigue. Patient reports that she has been using her inhaler, taking DayQuil and NyQuil and Ibuprofen. Patient reports that she had a fever of of 101F which she treated with Ibuprofen. Patient reports wheezing noted at intervals especially when she lays down, has history of asthma, denies any acute shortness of breath or any tachypnea noted, SAO2 99% on room air, cough noted. MD elicited complaint: cough and sore throat Pertinent past history: asthma and other (bronchitis) Onset (ago): day(s) (2) Pain scale (0-10): 7 Description of mucous: green Able to tolerate fluids by mouth: Yes Exacerbating factors: exertion Treatments prior to arrival: ibuprofen, cold medicine and other (inhaler) Related Data Allergies Allergy/AdvReac Type Severity Reaction Status Date / Time diazepam Allergy Unknown Hives and Verified 01/23/23 11:07 Shortness of breath nirmatrelvir Allergy Anaphylaxis Verified 01/23/23 11:07 [From Paxlovid (EUA)] ritonavir Allergy Anaphylaxis Verified 01/23/23 11:07 [From Paxlovid (EUA)] Review of Systems Review of Systems: CONSTITUTIONAL: Reports malaise, chills, sweats, or fever. EYES: Denies visual changes, redness, or discharge. ENT: Reports rhinorrhea, congestion, sinus pain, no otalgia positive for sore throat. CARDIOVASCULAR: Denies chest pain, palpitations, or edema. RESPIRATORY: Reports cough.? Denies acute dyspnea, reports some wheezing at intervals, expectoration of greenish tinged mucous. GASTROINTESTINAL: Denies abdominal pain, nausea, vomiting, diarrhea SKIN: Denies rash or itching. MUSCULOSKELETAL: Denies myalgia. NEUROLOGIC: Denies headache. All systems reviewed & are unremarkable except as noted in HPI and below PMFSH Past Medical History Medical History (Updated 01/23/23 @ 11:41 by Yi Herbert NP) Abnormal Pap smear of cervix COVID-19 Major depressive disorder, recurrent, moderate Mild intermittent asthma Surgical History Surgical History No history of previous surgery Family History Family History Mother Patient's mother is in good health Father Family history of cardiovascular disease, Onset Age: 63 Family history of schizophrenia Social History Social History Social History: Smoking status: Never smoker Second hand tobacco smoke exposure: No Alcohol intake: never Substance use: never Substance use type: does not use Living arrangements: with family Occupation/Education: occupation Gender identity (if verbalized by the patient): Female Sexual Orientation (if Verbalized by the Patient): Straight or Heterosexual Comments At time of signature, agree with nursing past medical, surgical, social and family history. There is no relevant family history pertinent to the presenting complaint Exam Narrative: GENERAL: Well-appearing, well-nourished, and in no acute distress. HEAD: Normocephalic EYES: PERRLA, conjunctivae clear ENT: Nares clear, turbinates edematous and erythematous, clear discharge. Mucous membranes moist. TM pearly sam with dull light reflex bilaterally; no tragal tenderness. Oropharynx erythematous without lesions. Tonsils mildly enlarged and without exudate, no drooling, no hoarseness, no trismus, uvula midline, post nasal drainage noted. NECK: Supple. No lymphadenopathy
[2023-01-23 11:09] VITALS: BP 148/92; PULSE 117; RESP 16; TEMP 36.6; O2SAT 99
== END 2023-01-23 11:33 | disposition home or self-care (01) ==
PROVIDERS: Emergency Provider Registered Nurse; PCP Family Medicine
DX: J40 Bronchitis, not specified as acute or chronic (principal); Z20.822 Contact with and (suspected) exposure to COVID-19; J45.909 Unspecified asthma, uncomplicated; Z86.16 Personal history of COVID-19
CPT/HCPCS: 87081; 87426; 87880; 99213; C9803; G0463

== ENCOUNTER 2023-06-19 09:34 | Outpatient (CLI) | payer OTHER, SELFPAY ==
[2023-06-19 10:12] LABS: Basophils Absolute Auto 0.1 K/mm3 (0.0-0.1); Basophils Percent Auto 0.7 % (0.2-1.2); Eosinophils Absolute Auto 0.2 K/mm3 (0-0.3); Eosinophils Percent Auto 2.8 % (0-4.4); Hematocrit 41.8 % (37.0-47.0); Hemoglobin 13.1 g/dL (12.0-15.0); Immature Granulocyte Absolute 0.02 K/mm3 (0.00-0.031); Immature Granulocyte Percent A 0.3 % (0-0.5); Lymphocytes Percent Auto 26.5 % (18.3-44.2); Mean Corpuscular HGB Conc 31.3 g/dl (32-36); Mean Corpuscular Hemoglobin 27.1 pg (26-34); Mean Corpuscular Volume 86.4 fl (80-100); Mean Platelet Volume 9.4 fl (7.4-10.4); Monocytes Absolute Auto 0.5 K/mm3 (0.1-0.6); Neutrophils Absolute Auto 4.5 K/mm3 (1.3-6.7); Neutrophils Percent Auto 62.7 % (45.5-73.1); Platelet Count Result 404 k/mm3 (150-375); Red Blood Count 4.84 M/mm3 (4.2-5.4); Red Cell Distribution Width 13.2 % (11.5-14.5); White Blood Count 7.2 K/mm3 (4.5-10.0)
[2023-06-19 10:24] LABS: Alanine Aminotransferase 19 U/L (6-35); Albumin Level 4.5 g/dL (3.5-5.1); Alkaline Phosphatase 78 U/L (38-126); Anion Gap 10 mmol/L (8-16); Aspartate Amino Transferase 22 U/L (14-36); Bilirubin,Total 0.5 mg/dL (0.2-1.3); Blood Urea Nitrogen 10 mg/dL (7-17); Calcium 9.2 mg/dL (8.4-10.2); Carbon Dioxide 23 mmol/L (22-30); Chloride 105 mmol/L (98-107); Estimated Glomerular Filt Rate > 60; Glucose 118 mg/dL (65-110); Potassium 3.7 mmol/L (3.4-5.0); Sodium 138 mmol/L (137-145)
[2023-06-19 11:05] LABS: Free T4 Free Thyroxine 1.15 ng/mL (0.78-2.19)
== END 2023-06-19 09:35 | disposition home or self-care (01) ==
PROVIDERS: PCP Family Medicine; Visit Provider Physician Assistant
DX: J45.20 Mild intermittent asthma, uncomplicated (principal); N92.0 Excessive and frequent menstruation with regular cycle; R00.2 Palpitations; E07.9 Disorder of thyroid, unspecified
CPT/HCPCS: 36415; 80053; 84439; 84443; 84481; 85025

== ENCOUNTER 2025-01-06 09:53 | Emergency (ER) | payer SELFPAY ==
[2025-01-06 10:09] VITALS: BP 135/95; PULSE 115; RESP 16; TEMP 36.6; O2SAT 99
--- NOTE | 2025-01-06 10:33 | ED.URI ---
HPI - URI/Sore Throat General Chief Complaint: Upper Respiratory Infection Stated Complaint: Upper Respiratory Symptoms [facility] with complaints shortness of breath, wheezing, cough, fatigue, chills, body aches, and headache that began 2 days ago. Patient does report a history of asthma currently out of her albuterol inhaler due to insurance and primary care provider problem. Patient has been using cough cold medication with minimal relief of symptoms. Patient does work in a rehab facility unknown sick contacts. Denies known fever, dizziness, sore throat, sinus pain, vomiting, diarrhea. Related Data Allergies Allergy/AdvReac Type Severity Reaction Status Date / Time diazepam Allergy Unknown Hives and Verified 06/19/23 08:41 Shortness of breath nirmatrelvir (From Paxlovid Allergy Anaphylaxis Verified 06/19/23 08:41 (EUA)) ritonavir (From Paxlovid Allergy Anaphylaxis Verified 06/19/23 08:41 (EUA)) Review of Systems Constitutional: Constitutional: Reports as per HPI, Denies chills, Denies fatigue, Denies fever(s) and Denies weakness Eyes: Eyes: Reports no additional eye complaints Cardiovascular: Cardiovascular: Reports no additional cardiovascular complaints Respiratory: Respiratory: Reports as per HPI, Reports chest congestion, Reports cough, Reports dyspnea and Reports wheezing Gastrointestinal: Gastrointestinal: Reports as per HPI, Reports abdominal pain and Reports nausea Genitourinary: Genitourinary: Reports as per HPI Musculoskeletal: Musculoskeletal: Reports no additional musculoskeletal complaints Integumentary/Breasts: Skin/Breast: Reports system reviewed and no additional complaints, except as docu Neurologic: Reports as per HPI, Denies vertigo, Denies dizziness, Denies syncope, Reports headache(s), Reports numbness and Denies weakness Psychiatric: Psychiatric: Reports no additional psychiatric complaints Endocrine: Endocrine: Reports no additional endocrine complaints Hematologic/Lymphatic: Hematologic/Lymphatic: Reports no additional hematologic/lymphatic complaints Allergic/Immunologic: Allergic/Immunologic: Reports no additional allergic/immunologic complaints [facility] Past Medical History Medical History Abnormal Pap smear of cervix COVID-19 Major depressive disorder, recurrent, moderate Mild intermittent asthma Surgical History Surgical History No history of previous surgery Family History Family History Mother Patient's mother is in good health Father Family history of cardiovascular disease, Onset Age: 63 Family history of schizophrenia Social History Social History (Updated 06/19/23 @ 08:42 by Karolyn Huffman) Social History: Smoking status: Never smoker Second hand tobacco smoke exposure: No Alcohol intake: never Substance use: never Substance use type: does not use Do You Feel Safe in your Home?: Yes Lack of Transportation: No Lack of Food: Never True Current Housing: I Have Housing Concerned About Future Housing: No Difficulty Paying Gas/Electric Bills: No Difficulty Paying for Meds: No Currently Unemployed: No Education: High School Diploma/GED Difficulty w/ Childcare or Family Care: No Living arrangements: with family Occupation/Education: occupation Additional occupation/education comments: [employer] Gender identity (if verbalized by the patient): Female Sexual Orientation (if Verbalized by the Patient): Straight or Heterosexual Exam Const: General: healthy appearing and no acute distress Nutritional Appearance: well nourished Orientation/consciousness: patient oriented x3 Limitations: no limitations HENMT: Head: normal to inspection Ears: external ears normal and TM's normal bilaterally Face/Nose/Sinus: Normal external nose present and Normal nares present Face and sinus: normal facial exam and sinuses nontender Mouth: Yes Normal oral and palatal mucosa present and Yes moist mucous membranes Throat: posterior oropharynx normal and uvula midline Neck: Neck: normal visual inspection and no lymphadenopathy Chest: Chest palpation & inspection: normal inspection of the chest Resp: Effort & Inspection: normal respiratory effort Auscultation: rhonchi, wheezes and diminished lung sounds Other: Dry cough noted Cardio: Rate: regular rate Rhythm: regular rhythm Skin: General skin exam: normal color Rashes: no rashes Wounds: no wounds Neuro: General: patient oriented x3 Speech: normal speech Gait exam (Neuro): Normal gait present Psych: Mental Status: mental status grossly normal Affect: normal affect Attitude: cooperative Course Course Level of Care: [facility] Care Visit Vital Signs Vital signs: Vital Signs Temperature 97.8 F 01/06/25 10:09 Pulse Rate 115 H 01/06/25 10:09 Respiratory Rate 16 01/06/25 10:09 Blood Pressure 135/95 H 01/06/25 10:09 Pulse Oximetry 99 01/06/25 10:09 Temperature 97.8 F 01/06/25 10:09 Pulse Rate 115 H 01/06/25 10:09 Respiratory Rate 16 01/06/25 10:09 Blood Pressure 135/95 H 01/06/25 10:09 Pulse Oximetry 99 01/06/25 10:09 MDM - URI/Sore Throat MDM Narrative Medical decision making narrative: influenza and COVID testing completed in clinic today. Negative Discharge instructions reviewed with patient, as well as provided in writing per nursing staff. The instructions also include specific and strict return/GO TO THE ER as well as f/u information. All questions have been answered, and the patient deny any further questions with discharge and discharge plan. Differential Diagnosis Differential diagnosis: Likely upper respiratory infection, otitis media, sinusitis, viral infection, bronchitis, influenza and pharyngitis Medical Records Attestation: I reviewed the patient's medical records. Lab Data Attestation: I reviewed the patient's lab results. Lab results narrative: negative Discharge Plan Discharge Clinical Impression: Bronchitis Patient Disposition: Home Condition: Stable Instructions: Antibiotic Form, Acute Bronchitis (ED), Cold Symptoms (ED) Additional Instructions: Return to urgent care or go to the ER for new or worsening symptoms. Continue to take Tylenol or Motrin for pain. Use a humidifier or vaporizer at night. Take Medications as prescribed. Drink plenty of water. 8-10 glasses per day. Use flonase 2 times per day for 5 days then as needed Take mucinex 2 times per day and be sure to take with 8oz of water. Follow up with Primary provider if not getting better. Return to [facility] or go to the ER for new or worsening symptoms. Take the full dose of steroids as directed to decrease inflammation and open up sinus and airway Increase water intake to 8-10 glasses per day Patient Language: Kinyarwanda Prescriptions: New albuterol sulfate [Ventolin HFA] 90 mcg/actuation HFA aerosol inhaler 2 puff inhalation QID PRN (Reason: shortness of breath or wheezing) Qty: 8.5 2RF prednisone 50 mg tablet 50 mg PO DAILY Qty: 7 0RF No Action azelastine 137 mcg (0.1 %) aerosol,spray 137 mcg intranasal Q12H Qty: 30 0RF Rx Instructions: administer into each nostril fluticasone propionate 50 mcg/actuation spray,suspension 1 spray intranasal DAILY Qty: 16 0RF Rx Instructions: administer into each nostril albuterol sulfate 90 mcg/actuation HFA aerosol inhaler See Rx Instructions .ROUTE .COMPLEX Qty: 6.7 0RF Dose Instruction: INHALE 1 PUFF EVERY 4 HOURS NEEDED FOR SHORTNESS OF BREATH OR WHEEZING Rx Instructions: INHALE 1 PUFF EVERY 4 HOURS NEEDED FOR SHORTNESS OF BREATH OR WHEEZING Follow-up/Referrals: PHYSICIAN,LEHR STRIPPER [Primary Care Provider] - Stand Alone Forms: Work/School Release IP Time of Disposition: 10:45
[2025-01-06 10:42] LABS: EDCOVIDSCREEN Negative (Negative); EDINFLUASCREEN Negative (Negative); EDINFLUBSCREEN Negative (Negative)
== END 2025-01-06 10:53 | disposition home or self-care (01) ==
PROVIDERS: Emergency Provider Nurse Practitioner Family
DX: J40 Bronchitis, not specified as acute or chronic (principal); Z20.822 Contact with and (suspected) exposure to COVID-19; J45.909 Unspecified asthma, uncomplicated; Z86.16 Personal history of COVID-19
CPT/HCPCS: 87426; 87804; 99213; G0463